=== PATIENT | female | born 1985 | race Caucasian/White ===

== ENCOUNTER 2018-12-08 12:28 | Emergency (ER) | payer SELFPAY ==
[~2018-12-08] VITALS: Ht 160 cm; Wt 72.7 kg
[2018-12-08 12:33] VITALS: BP 122/76
== END 2018-12-08 12:57 | disposition left against medical advice (07) ==
LOC: EMS 12:31
DX: R06.02 Shortness of breath (principal); Z53.21 Procedure and treatment not carried out due to patient leaving prior to being seen by health care provider
CPT/HCPCS: 93005